=== PATIENT | female | born 2000 | race Caucasian/White ===

== ENCOUNTER 2018-06-14 07:19 | Emergency (ER) | payer OTHER ==
[~2018-06-14] VITALS: Ht 157.5 cm; Wt 59.8 kg
[2018-06-14 08:01] LABS: HEMATOCRIT 37.8 % (36.0-46.0); HEMOGLOBIN 13.1 G/DL (11.9-15.5); MCHC 34.7 G/DL (30.0-36.0); MCV 86.5 FL (83-99); PLATELET COUNT 277 K/uL (156-360); RBC DIS.WIDTH-CV 11.9 % (11.8-14.6); RBC DIS.WIDTH-SD 37.7 % (39-53); RED BLOOD COUNT 4.37 M/uL (3.80-5.20); WHITE BLOOD COUNT 6.5 K/uL (4.1-10.2)
[2018-06-14 08:18] LABS: APPEARANCE CLEAR ((CLEAR)); BILIRUBIN NEGATIVE; BLOOD MODERATE; COLOR YELLOW ((YELLOW)); GLUCOSE (STRIP) NEGATIVE; KETONES NEGATIVE; LEUKOCYTES NEGATIVE; NITRITE NEGATIVE; PROTEIN (STRIP) NEGATIVE; SPECIFIC GRAVITY 1.013 (1.000-1.030); UROBILINOGEN 0.2 MG/DL (0.2-1.0)
[2018-06-14 08:18] LABS: ALBUMIN 4.5 g/dL (3.2-4.8); CHLORIDE 105 mEq/L (99-109); POTASSIUM 4.2 mEq/L (3.7-5.4); SODIUM 139 mEq/L (136-147)
[2018-06-14 08:20] LABS: GLUCOSE 103 mg/dL (70-99); TOTAL PROTEIN 7.3 g/dL (6.4-8.3)
[2018-06-14 08:22] LABS: TOTAL BILIRUBIN 0.9 mg/dL (0.0-1.0)
[2018-06-14 08:23] LABS: BACTERIA NONE SEEN /HPF; EPITHELIAL CELLS 1+ /HPF; MUCUS TRACE /LPF; RED BLOOD CELLS 0-5 /HPF (0-5); WHITE BLOOD CELLS 0-5 /HPF (0-5)
[2018-06-14 08:24] LABS: ALKALINE PHOSPHATASE 100 IU/L (3-129); CREATININE 0.8 mg/dL (0.6-1.3); GFR ESTIMATE (CALCULATED) > 59 mL/min/
[2018-06-14 08:25] LABS: UREA NITROGEN (BUN) 10 mg/dL (9-23)
[2018-06-14 08:26] LABS: AST (GOT) 16 IU/L (2-34)
[2018-06-14 08:27] LABS: ALT (GPT) 13 IU/L (3-49); LIPASE 27 U/L (1.0-51.0)
[2018-06-14 08:33] LABS: QUANTITATIVE HCG < 4.0 MIU/ML
[2018-06-14] MEDS ORDERED: REGLAN5 MG PO (09:43)
[2018-06-14] MEDS ORDERED: MECLIZINE HCL12.5 M1 PO (09:45)
[2018-06-14 10:36] VITALS: BP 126/68
== END 2018-06-14 10:37 | disposition home or self-care (01) ==
LOC: EME 07:19
PROVIDERS: Nurse Practitioner Family
DX: R11.2 Nausea with vomiting, unspecified (principal); H81.10 Benign paroxysmal vertigo, unspecified ear; H69.80 Other specified disorders of Eustachian tube, unspecified ear; J02.9 Acute pharyngitis, unspecified; Z97.5 Presence of (intrauterine) contraceptive device
CPT/HCPCS: 80053; 81003; 83690; 84702; 85027; 87651 90; 99281; 99283

== ENCOUNTER 2018-06-18 11:07 | Emergency (ER) | payer OTHER ==
[~2018-06-18] VITALS: Ht 157.5 cm; Wt 59.7 kg
[~2018-06-18 11:07] MED LIST: MECLIZINE HCL12.5 M1 PO; REGLAN5 MG PO
[2018-06-18 12:51] LABS: HEMATOCRIT 42.3 % (36.0-46.0); HEMOGLOBIN 14.6 G/DL (11.9-15.5); MCH 29.9 PG (29.0-34.0); MCHC 34.5 G/DL (30.0-36.0); MCV 86.5 FL (83-99); PLATELET COUNT 306 K/uL (156-360); RBC DIS.WIDTH-CV 11.9 % (11.8-14.6); RBC DIS.WIDTH-SD 37.7 % (39-53); RED BLOOD COUNT 4.89 M/uL (3.80-5.20); WHITE BLOOD COUNT 6.4 K/uL (4.1-10.2)
[2018-06-18 12:59] LABS: ALBUMIN 4.6 g/dL (3.2-4.8); CHLORIDE 107 mEq/L (99-109); POTASSIUM 4.2 mEq/L (3.7-5.4); SODIUM 141 mEq/L (136-147)
[2018-06-18 13:01] LABS: GLUCOSE 86 mg/dL (70-99)
[2018-06-18 13:02] LABS: TOTAL PROTEIN 7.8 g/dL (6.4-8.3)
[2018-06-18 13:04] LABS: TOTAL BILIRUBIN 0.6 mg/dL (0.0-1.0)
[2018-06-18 13:05] LABS: ALKALINE PHOSPHATASE 106 IU/L (3-129); CREATININE 0.7 mg/dL (0.6-1.3); GFR ESTIMATE (CALCULATED) > 59 mL/min/
[2018-06-18 13:06] LABS: UREA NITROGEN (BUN) 10 mg/dL (9-23)
[2018-06-18 13:07] LABS: AST (GOT) 17 IU/L (2-34)
[2018-06-18 13:08] LABS: ALT (GPT) 13 IU/L (3-49)
[2018-06-18 13:14] LABS: QUANTITATIVE HCG < 4.0 MIU/ML
[2018-06-18 13:32] LABS: APPEARANCE CLEAR ((CLEAR)); BILIRUBIN NEGATIVE; BLOOD NEGATIVE; COLOR COLORLESS ((YELLOW)); GLUCOSE (STRIP) NEGATIVE; KETONES NEGATIVE; LEUKOCYTES NEGATIVE; NITRITE NEGATIVE; PROTEIN (STRIP) NEGATIVE; SPECIFIC GRAVITY 1.006 (1.000-1.030); UCUL ADDED? NO; UROBILINOGEN 0.2 MG/DL (0.2-1.0)
[2018-06-18 14:11] LABS: LIPASE 39 U/L (1.0-51.0)
[2018-06-18] MEDS ORDERED: PROMETHAZINE HC25 M1 PO (14:16)
[2018-06-18] MEDS ORDERED: PEPCID20 MG PO (14:17)
[2018-06-18 14:25] VITALS: BP 137/85
== END 2018-06-18 14:26 | disposition home or self-care (01) ==
LOC: EME 11:07
PROVIDERS: Physician Assistant
DX: K80.20 Calculus of gallbladder without cholecystitis without obstruction (principal)
CPT/HCPCS: 76705; 80053; 81003; 83690; 84702; 85027; 99281; 99284; J2765; J7030